=== PATIENT | female | born 1980 | race Caucasian/White ===

== ENCOUNTER 2016-12-19 23:29 | Observation (INO) | payer OTHER ==
--- NOTE | 2016-12-20 00:03 | PDOC ---
History of Present Illness - General Chief Complaint: Headache Stated Complaint: HEADACHE Time Seen by Provider: 12/19/16 23:42 History Source: Patient Exam Limitations: No Limitations - History of Present Illness Timing/Duration: reports: 4-6 hours Associated Symptoms: denies: fever/chills, nausea/vomiting, ringing in ears, slurred speech, tingling in legs/feet Past History - Past Medical History Allergies/Adverse Reactions: Allergies Allergy/AdvReac Type Severity Reaction Status Date / Time No Known Allergies Allergy Verified 12/20/16 00:01 Home Medications: Ambulatory Orders Enoxaparin [Lovenox -] 60 mg SQ DAILY 12/20/16 NK [No Known Home Medication] 12/20/16 CVA: Yes (2010) - Immunization History Immunization Up to Date: Yes - Psycho/Social/Smoking Cessation Hx Anxiety: No Suicidal Ideation: No Smoking Status: No Smoking History: Never smoked Years of Tobacco Use: 0 Number of Cigarettes Smoked Daily: 0 Cigars Per Day: 0 Hx Alcohol Use: No Drug/Substance Use Hx: No Review of Systems - Review of Systems Able to Perform ROS?: Yes Comments:: 12/20/16 00:02 CONSTITUTIONAL: Absent: fever, chills, diaphoresis, generalized weakness, malaise, loss of appetite HEENT: Absent: rhinorrhea, nasal congestion, throat pain, throat swelling, difficulty swallowing, mouth swelling, ear pain, eye pain, visual Changes CARDIOVASCULAR: Absent: chest pain, loss of consciousness, palpitations, irregular heart rate, peripheral edema RESPIRATORY: Absent: cough, shortness of breath, dyspnea with exertion, orthopnea, wheezing, stridor, hemoptysis GASTROINTESTINAL: Absent: abdominal pain, abdominal distension, nausea, vomiting, diarrhea, constipation, melena, hematochezia GENITOURINARY: Absent: dysuria, frequency, urgency, hesitancy, hematuria, flank pain, genital pain MUSCULOSKELETAL: Absent: myalgia, arthralgia, joint swelling SKIN: Absent: rash, itching, pallor HEMATOLOGIC/IMMUNOLOGIC: Absent: easy bleeding, easy bruising, lymphadenopathy, frequent infections ENDOCRINE: Absent: unexplained weight gain, unexplained weight loss, heat intolerance, cold intolerance NEUROLOGIC: +generalized serrano Absent: focal weakness or paresthesias, dizziness, unsteady gait, seizure, mental status changes, bladder or bowel incontinence PSYCHIATRIC: Absent: anxiety, depression, suicidal or homicidal ideation, hallucinations. Is the patient limited Korean proficient: No *Physical Exam - Physical Exam Comments: 12/20/16 00:02 GENERAL: Well developed, well nourished. Awake and alert. No acute distress. HEENT: Normocephalic, atraumatic. PERRLA, EOMI. No conjunctival pallor. Sclera are non- icteric. Moist mucous membranes. Oropharynx is clear. NECK: Supple. Full ROM. No JVD. Carotid pulses 2+ and symmetric, without bruits. No thyromegaly. No lymphadenopathy. CARDIOVASCULAR: Regular rate and rhythm. No murmurs, rubs, or gallops. Distal pulses are 2+ and symmetric. PULMONARY: No evidence of respiratory distress. Lungs clear to auscultation bilaterally. No wheezing, rales or rhonchi. ABDOMINAL: Soft. Non-tender. Non-distended. No rebound or guarding. No organomegaly. Normoactive bowel sounds. MUSCULOSKELETAL Normal range of motion at all joints. No bony deformities or tenderness. No CVA tenderness. EXTREMITIES: No cyanosis. No clubbing. No edema. No calf tenderness. SKIN: Warm and dry. Normal capillary refill. No rashes. No jaundice. NEUROLOGICAL: Alert, awake, appropriate. Cranial nerves 2-12 intact. No deficits to light touch and temperature in face, upper extremities and lower extremities. No motor deficits in the in face, upper extremities and lower extremities. Normoreflexic in the upper and lower extremities. Normal speech. Toes are down- going bilaterally. Gait is normal without ataxia. PSYCHIATRIC: Cooperative. Good eye contact. Appropriate mood and affect. ED Treatment Course - LABORATORY CBC & Chemistry Diagram: 12/20/16 00:21 12/20/16 00:21 Progress Note - Progress Note Progress Note: 36-year-old female presents to the emergency department complaining of diffuse headache since this morning. Patient states the pain is described as gradual onset from last evening 8/10 dull constant nonradiating discomfort. Patient says her symptoms are similar to 2010 when she had the cerebral hemorrhage after preeclampsia. Patient had no neurological deficits from that incident. She denies fever, chills, nausea/vomiting, neck pains, back pains, chest pain, shortness of breath, abdominal pains, Edwin numbness or tingling sensation. Patient was just discharged from [facility] yesterday. She had on 12/12/2016/eclampsia. Patient was treated at [facility] Past medical history: -2010: preeclampsia. day #2, patient developed a unrelenting headache which affected her gait and coordination. She states 1 day , she developed a worse headache of her life. She had a CAT scan of her head which showed cerebral hemorrhage. -NSVC on 12/12/2016: today is day 9. Elevated blood pressures and slowly progressive headache Pt received Mag sulfate 4gm initiate dose then 2 gm /hr x24 hour PT was d/c yesterday without HTN MEDS [id number]: Spoke to Dr. Apple [phone]/OB at [facility]. Suggest to admit for HTN Pt offered to be transferred back to [facility] to continue care with her OB/med team. Pt refuses, wishes to be admitted here 0315hrs: Spoke to Dr. Rosado/hospitalist who says to d/c pt. He was informed to consult with pt in the ER and he may discharge if that is his plan. 0425hrs: Case discussed with Dr. Reyna/OB salvationist here at [facility]. Dr. Reyna suggests to have pt admitted to medical team for HTN control. She says pt will not come to L&D because pt delivered on 12/12/2015. 0428hrs: LIZA Yan spoke to Dr. Rosado/hospitalist who ordered Clonidine 0.1mg. *DC/Admit/Observation/Transfer Diagnosis at time of Disposition: Pre-eclampsia, , Hypertension, condition or complication - Discharge Dispostion Condition at time of disposition: Guarded Admit: Yes - Referrals Referrals: Alexander Stone MD [Primary Care Provider] -
[2016-12-20] MEDS ORDERED: METOCLOPRAMIDE HCL INJECTION 10 MG/2 ML VIAL IVPUSH ONE (00:27)
[2016-12-20] MEDS ORDERED: HYDROmorphone HCL CARPU-JECT 1 MG/1 ML DISP.SYRIN IVPUSH ONE (00:27)
[2016-12-20] MEDS ORDERED: SODIUM CHLORIDE 1,000 ML IV STA (00:27)
[2016-12-20] MEDS ORDERED: LABETALOL HCL 5 MG/1 ML (100MG/20 ML VIAL) IVPUSH ONE (00:32)
[2016-12-20 00:36] LABS: BASOPHIL 1.4 % (0-2.0); MCH 21.4 pg (25.7-33.7); MCHC 30.5 g/dl (32.0-36.0); MEAN CELL VOLUME 70.1 fl (80-96); MEAN PLT VOLUME 8.3 fl (7.5-11.1); NEUTROPHILS 69.8 % (42.8-82.8); PLATELET COUNT 409 K/MM3 (134-434); RDW 23.8 % (11.6-15.6); WHITE BLOOD COUNT 10.6 K/mm3 (4.0-10.0)
[2016-12-20] MEDS ORDERED: METOCLOPRAMIDE HCL INJECTION 10 MG/2 ML VIAL ONE ×2 (00:55→10:31)
[2016-12-20] MEDS ORDERED: LABETALOL HCL 5 MG/1 ML (100MG/20 ML VIAL) ONE (00:55)
[2016-12-20 01:03] LABS: ALBUMIN 2.7 g/dl (3.4-5.0); ANION GAP 12 (8-16); BILIRUBIN,TOTAL 0.3 mg/dL (0.2-1.0); CALCIUM 8.8 mg/dL (8.5-10.1); CO2 27 mmol/L (21-32); GLUCOSE,RANDOM 94 mg/dL (74-106); SGOT/AST 73 U/L (15-37); SGPT/ALT 78 U/L (12-78)
[2016-12-20 01:04] LABS: ALK PHOS 101 U/L (45-117); TOT PROT 6.5 g/dl (6.4-8.2)
[2016-12-20] MEDS ORDERED: HYDROmorphone HCL CARPU-JECT 1 MG/1 ML DISP.SYRIN ONE ×2 (01:16→04:25)
--- NOTE | 2016-12-20 01:21 | PDOC ---
*Physical Exam - Vital Signs Last Vital Signs Temp Pulse Resp BP Pulse Ox 97.8 F 75 18 182/99 94 L 12/20/16 00:01 12/20/16 00:01 12/20/16 00:01 12/20/16 00:01 12/20/16 00:01 ED Treatment Course - LABORATORY CBC & Chemistry Diagram: 12/20/16 00:21 12/20/16 00:21 - ADDITIONAL ORDERS Additional order review: Laboratory Results 12/20/16 00:21 Sodium 142 Potassium 4.5 D Chloride 103 Carbon Dioxide 27 Anion Gap 12 BUN 13 D Creatinine 1.0 D Creat Clearance w eGFR > 60 Random Glucose 94 Calcium 8.8 Total Bilirubin 0.3 AST 73 H D ALT 78 D Alkaline Phosphatase 101 D Total Protein 6.5 Albumin 2.7 L D 12/20/16 00:21 RBC 4.46 MCV 70.1 L MCHC 30.5 L RDW 23.8 H D MPV 8.3 D Neutrophils % 69.8 D Lymphocytes % 20.3 Monocytes % 5.5 Eosinophils % 3.0 Basophils % 1.4 Medical Decision Making - Critical Care Time Total Critical Care Time (minutes): 65 Critical Care Statement: The care of this patient involved high complexity decision making to prevent further life threatening deterioration of the patient 's condition and/or to evalute & treat vital organ system(s) failure or risk of failure. - Medical Decision Making 12/20/16 01:19 Patient seen and evaluated with the nurse practitioner. I agree with the overall evaluation, assessment, and management with the following summary of visit: 36-year-old female with history of preeclampsia complicated by subarachnoid hemorrhage now presents about 5 weeks with elevated blood pressures and gradual onset of slowly progressive headache, but potentially similar in nature to her past subarachnoid. No neurological deficits. Vitals as noted. Exam as noted. 36-year-old female presents with preeclampsia, rule out complication of intracranial hemorrhage. Lower suspicion given onset pattern. Neurologically intact. Stat CT head IV access obtained, blood pressure control with labetalol Labs sent, EKG, chest x-ray Pain control for headache OB/L+D consult Admission 12/20/16 02:07 Labs wnl, feels well with improved BP 140-[address] without acute pathology, remains neuro intact. Will discuss plan with her private doc from [facility], from which she was discharged last night. Determine transfer v. d/c (start meds or routine f/u?). Plan to contact OB/L+D and dispo accordingly. *DC/Admit/Observation/Transfer Diagnosis at time of Disposition: Pre-eclampsia, - Referrals Referrals: Alexander Stone MD [Primary Care Provider] -
[2016-12-20] MEDS ORDERED: hydrALAZINE HCL 20 MG/ML VIAL IVPUSH ONE (01:44)
[2016-12-20] MEDS ORDERED: hydrALAZINE HCL 20 MG/ML VIAL ONE (01:49)
[2016-12-20 03:58] LABS: URINE APPEARANCE SLCLOUDY; URINE BILIRUBIN NEGATIVE (NEGATIVE); URINE COLOR STRAW; URINE GLUCOSE (UA) NEGATIVE (NEGATIVE); URINE KETONE NEGATIVE (NEGATIVE); URINE NITRITE NEGATIVE (NEGATIVE); URINE PROTEIN NEGATIVE (NEGATIVE); URINE UROBILINOGEN NEGATIVE E.U./dl (0.2-1.0)
[2016-12-20 04:10] LABS: URINE BLOOD 3+ (NEGATIVE); URINE LEUK ESTERASE 2+ (NEGATIVE)
[2016-12-20] MEDS ORDERED: HYDROmorphone HCL CARPU-JECT 1 MG/1 ML DISP.SYRIN IVPB ONE ×2 (04:22→15:02)
[2016-12-20 04:25] LABS: URINE RBC 270 /hpf (0-3); URINE WBC 64 /hpf (3-5)
[2016-12-20] MEDS ORDERED: cloNIDine HCL 0.1 MG TABLET ONE (04:40)
[2016-12-20] MEDS ORDERED: cloNIDine HCL 0.1 MG TABLET PO ONE (04:47)
[2016-12-20 06:59] LABS: PLATELET ESTIMATE ADEQUATE (NORMAL)
[2016-12-20 07:00] LABS: ANISOCYTOSIS 3+; HYPOCHROMIA 1+; POLYCHROMASIA 2+
[2016-12-20] MEDS ORDERED: MAGNESIUM SULF 50% (8.12 MEQ/2 ML-1 GM VIAL) ONE (07:27)
[2016-12-20 07:48] LABS: MAGNESIUM 1.9 mg/dL (1.8-2.4)
[2016-12-20 08:59] LABS: URINE APPEARANCE CLEAR; URINE BILIRUBIN NEGATIVE (NEGATIVE); URINE COLOR STRAW; URINE GLUCOSE (UA) NEGATIVE (NEGATIVE); URINE KETONE NEGATIVE (NEGATIVE); URINE NITRITE NEGATIVE (NEGATIVE); URINE PROTEIN NEGATIVE (NEGATIVE); URINE UROBILINOGEN NEGATIVE E.U./dl (0.2-1.0)
[2016-12-20] MEDS ORDERED: LABETALOL HCL 200 MG TABLET (FP) PO SCH ×2 (09:00→10:00)
[2016-12-20 09:01] LABS: URINE BLOOD 3+ (NEGATIVE); URINE LEUK ESTERASE 1+ (NEGATIVE)
[2016-12-20 09:04] LABS: URINE MUCUS RARE; URINE RBC 420 /hpf (0-3); URINE WBC 12 /hpf (3-5)
--- NOTE | 2016-12-20 09:24 | HP ---
CHIEF COMPLAINT: PCP: Dr. Stone OB: Dr. 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 The patient delivered at full term on 12/12 and remained in [facility] on MgSO4 for treatment of pre-eclampsia; she was discharged yesterday on no HTN meds. She reports that last night just before midnight, she developed generalized headache. She states that it is "not as bad" as when she had her SAH. She took some Tylenol with partial relief. She denies nausea/vomiting, neck pain, and visual changes, but does report that she felt "uncoordinated" when she tried to stand up from her bed. ER course was notable for: (1) Head CT: No acute intracranial process (2) HTN, max BP 175/94 (3) Given hydralazine 10mg IVP and Labetolol 10mg IVP [facility] records reviewed and notable for: (1) Severe range BPs with dyspnea requiring 24 hrs pf magnesium sulfate (2) CXR showing mild pulmonary vascular congestion (3) Echocardiogram showing mildly dilated LA with EF 65%; seen by cardiology and cleared for discharge with outpatient followup (4) Complaint of lower extremity numbness: T-spine and L-spine MRI spine performed with no significant disc herniation spinal stenosis, or cord compression. Diffuse T1 hypodensity of the marrow was noted which in a patient can be seen with anemia. Recent Travel: None Social History: Lives with fiance and four children Smoking: None Alcohol: None Drugs:None Allergies No Known Allergies Allergy (Verified 12/20/16 00:01) HOME MEDICATIONS: Home Medications Medication Instructions Recorded Enoxaparin [Lovenox -] 60 mg SQ DAILY 12/20/16 NK [No Known Home Medication] 12/20/16 REVIEW OF SYSTEMS CONSTITUTIONAL: Absent: fever, chills, diaphoresis, generalized weakness, malaise, loss of appetite, weight change HEENT: Absent: rhinorrhea, nasal congestion, throat pain, throat swelling, difficulty swallowing, mouth swelling, ear pain, eye pain, visual changes CARDIOVASCULAR: Absent: chest pain, syncope, palpitations, irregular heart rate, lightheadedness , peripheral edema RESPIRATORY: Absent: cough, shortness of breath, dyspnea with exertion, orthopnea, wheezing, stridor, hemoptysis GASTROINTESTINAL: Absent: abdominal pain, abdominal distension, nausea, vomiting, diarrhea, constipation, melena, hematochezia GENITOURINARY: Absent: dysuria, frequency, urgency, hesitancy, hematuria, flank pain, genital pain MUSCULOSKELETAL: Absent: myalgia, arthralgia, joint swelling, back pain, neck pain SKIN: Absent: rash, itching, pallor HEMATOLOGIC/IMMUNOLOGIC: Absent: easy bleeding, easy bruising, lymphadenopathy, frequent infections ENDOCRINE: Absent: unexplained weight gain, unexplained weight loss, heat intolerance, cold intolerance NEUROLOGIC: See HPI PSYCHIATRIC: Absent: anxiety, depression, suicidal or homicidal ideation, hallucinations. PHYSICAL EXAMINATION Vital Signs - 24 hr 12/20/16 12/20/16 06:38 06:56 Blood Pressure 175/94 175/94 [Left Arm] GENERAL: Awake, alert, and fully oriented, in no acute distress. HEAD: Normal with no signs of trauma. EYES: Pupils equal, round and reactive to light, extraocular movements intact, sclera anicteric, conjunctiva clear. No lid lag. EARS, NOSE, THROAT: Ears normal, nares patent, oropharynx clear without exudates. Moist mucous membranes. NECK: Normal range of motion, supple without lymphadenopathy, JVD, or masses. LUNGS: Breath sounds equal, clear to auscultation bilaterally. No wheezes, and no crackles. No accessory muscle use. HEART: Regular rate and rhythm, normal S1 and S2 without murmur, rub or gallop. ABDOMEN: Soft, nontender, not distended, normoactive bowel sounds, no guarding, no rebound, no masses. No hepatomegaly or splenomegaly. MUSCULOSKELETAL: Normal range of motion at all joints. No bony deformities or tenderness. No CVA tenderness. UPPER EXTREMITIES: 2+ pulses, warm, well-perfused. No cyanosis. No clubbing. Cap refill <2 seconds. No peripheral edema. LOWER EXTREMITIES: 2+ pulses, warm, well-perfused. No calf tenderness. No peripheral edema. NEUROLOGICAL: Cranial nerves II-XII intact. Normal speech. PSYCHIATRIC: Cooperative. Good eye contact. Appropriate mood and affect. SKIN: Warm, dry, normal turgor, no rashes or lesions noted. Laboratory Results - last 24 hr 12/20/16 12/20/16 08:08 08:41 Urine Color Straw Urine Appearance Clear Urine pH 6.0 Ur Specific [place] 1.008 Urine Protein Negative Urine Glucose (UA) Negative Urine Ketones Negative Urine Blood 3+ H Urine Nitrite Negative Urine Bilirubin Negative Urine Urobilinogen Negative Ur Leukocyte Esterase 1+ H Urine RBC 420 Urine WBC 12 Ur Epithelial Cells Rare Urine Mucus Rare Urine HCG, Qual Negative ASSESSMENT/PLAN: 36 year old female with post- HTN and headache. Problem List - Problem (1) Hypertension, condition or complication Assessment/Plan: -Patient became bradycardic to 40s after one dose Labetolol; will discontinue this -Patient is not -Start Lisinopril 5mg bid -Sodium restriction -Monitor Code(s): O16.9 - UNSPECIFIED MATERNAL HYPERTENSION, UNSPECIFIED TRIMESTER (2) Headache Assessment/Plan: -HCT obtained within 6 hrs of symptom onset; very high sensitivity for ruling out SAH -In addition, patient states character and severity of headache is different from/less than prior SAH -Will treat headache with Reglan/Benadryl -Expect improvement with BP control -Neuro checks q4h Code(s): R51 - HEADACHE (3) Protein S deficiency Assessment/Plan: -Continue Lovenox 60mg daily for 6 weeks per [facility] OB recommendations Code(s): D68.59 - OTHER PRIMARY THROMBOPHILIA (4) DVT prophylaxis Assessment/Plan: -Lovenox -Ambulation Code(s): HGO6601 - Visit type - Emergency Visit Emergency Visit: Yes ED Registration Date: 12/20/16 Care time: The patient presented to the Emergency Department on the above date and was hospitalized for further evaluation of their emergent condition. - New Patient This patient is new to me today: Yes Date on this admission: 12/20/16 - Critical Care Critical Care patient: No
[2016-12-20] MEDS ORDERED: METOCLOPRAMIDE HCL INJECTION 10 MG/2 ML VIAL IVPB ONE (09:56)
[2016-12-20] MEDS ORDERED: LISINOPRIL 5 MG TABLET (FP) PO SCH (10:00)
[2016-12-20] MEDS ORDERED: LISINOPRIL 5 MG TABLET (FP) ONE (10:32)
[2016-12-20] MEDS: LISINOPRIL 5 MG TABLET (FP) PO SCH ×3 (10:41→22:43)
[2016-12-20 11:36] VITALS: BMI 39.1
[2016-12-20] MEDS ORDERED: METOCLOPRAMIDE HCL INJECTION 10 MG/2 ML VIAL IVPB PRN (18:00)
[2016-12-20] MEDS ORDERED: IBUPROFEN 600 MG TABLET (FP) PO PRN (23:53)
--- NOTE | 2016-12-21 06:04 | EKG ---
Test Reason : Blood Pressure : / mmHG Vent. Rate : 045 BPM Atrial Rate : 045 BPM P-R Int : 150 ms QRS Dur : 104 ms QT Int : 496 ms P-R-T Axes : 046 043 032 degrees QTc Int : 429 ms SINUS BRADYCARDIA WITH SINUS ARRHYTHMIA OTHERWISE NORMAL ECG WHEN COMPARED WITH ECG OF 15-NOV-2012 05:52, VENT. RATE HAS DECREASED BY 35 BPM BORDERLINE CRITERIA FOR INFERIOR INFARCT ARE NO LONGER PRESENT T WAVE AMPLITUDE HAS INCREASED IN LATERAL LEADS Confirmed by JEREMY BAEZ MD ([id number]) on 12/20/2016 9:46:55 PM Referred By: Confirmed By:JEREMY BAEZ MD
[2016-12-21 06:35] VITALS: BP 142/90
[2016-12-21 07:21] LABS: BASOPHIL 0.9 % (0-2.0); EOSINOPHIL 3.9 % (0-4.5); INR 1.17 (0.82-1.09); MCHC 31.2 g/dl (32.0-36.0); MEAN CELL VOLUME 70.6 fl (80-96); MEAN PLT VOLUME 8.1 fl (7.5-11.1); NEUTROPHILS 67.1 % (42.8-82.8); PLATELET COUNT 463 K/MM3 (134-434); PROTHROMBIN TIME (PATIENT) 12.9 SEC (9.98-11.88); RDW 23.1 % (11.6-15.6); WHITE BLOOD COUNT 7.8 K/mm3 (4.0-10.0)
[2016-12-21 07:31] LABS: ALBUMIN 2.8 g/dl (3.4-5.0); ANION GAP 9 (8-16); BILIRUBIN,TOTAL 0.4 mg/dL (0.2-1.0); CALCIUM 8.9 mg/dL (8.5-10.1); CO2 29 mmol/L (21-32); CREATININE 0.8 mg/dL (0.55-1.02); GLUCOSE,RANDOM 80 mg/dL (74-106); MAGNESIUM 2.2 mg/dL (1.8-2.4); SGOT/AST 75 U/L (15-37); SGPT/ALT 115 U/L (12-78); TOT PROT 6.7 g/dl (6.4-8.2)
[2016-12-21 07:32] LABS: ALK PHOS 100 U/L (45-117)
[2016-12-21] MEDS: LISINOPRIL 5 MG TABLET (FP) PO SCH (09:02)
[2016-12-21] MEDS ORDERED: ENOXAPARIN NA (PORCINE) 60 MG/0.6 ML DISP.SYRIN SQ SCH (10:00)
[2016-12-21 14:11] VITALS: PULSE 68; TEMP 98.4
--- NOTE | 2016-12-21 14:23 | PN ---
Teaching Attending Note Name of Resident: Whitley Morris ATTENDING PHYSICIAN STATEMENT I saw and evaluated the patient. I reviewed the resident's note and discussed the case with the resident. I agree with the resident's findings and plan as documented. SUBJECTIVE: Patient is comfortable with no acute distress, no headache, no shortness of breath, no nausea or vomiting. OBJECTIVE: Vital Signs Temperature 98.4 F 12/21/16 14:00 Pulse Rate 68 12/21/16 14:00 Respiratory Rate 17 12/21/16 14:00 Blood Pressure 142/90 12/21/16 06:00 O2 Sat by Pulse Oximetry (%) 96 12/21/16 00:00 GENERAL: Awake, alert, and fully oriented, in no acute distress. HEAD: Normal with no signs of trauma. EYES: Pupils equal, round and reactive to light, extraocular movements intact, sclera anicteric, conjunctiva clear. EARS, NOSE, THROAT: Ears normal, oropharynx clear without exudates. Moist mucous membranes. NECK: Normal range of motion, supple without lymphadenopathy, JVD, or masses. LUNGS: Breath sounds equal, clear to auscultation bilaterally. No wheezes, and no crackles. No accessory muscle use. HEART: Regular rate and rhythm, normal S1 and S2 without murmur, rub or gallop. ABDOMEN: Soft, nontender, not distended, normoactive bowel sounds, no guarding, no rebound, no masses. MUSCULOSKELETAL: Normal range of motion at all joints. No bony deformities or tenderness. No CVA tenderness. EXTREMITIES: 2+ pulses, warm, well-perfused. No calf tenderness. No peripheral edema. NEUROLOGICAL: Cranial nerves II-XII intact. Normal speech. PSYCHIATRIC: Cooperative. Good eye contact. Appropriate mood and affect. SKIN: Warm, dry, normal turgor, no rashes or lesions noted. CBCD WBC 7.8 K/mm3 (4.0-10.0) 12/21/16 06:30 RBC 4.91 M/mm3 (3.60-5.2) 12/21/16 06:30 Hgb 10.8 GM/dL (10.7-15.3) D 12/21/16 06:30 Hct 34.6 % (32.4-45.2) 12/21/16 06:30 MCV 70.6 fl (80-96) L 12/21/16 06:30 MCHC 31.2 g/dl (32.0-36.0) L 12/21/16 06:30 RDW 23.1 % (11.6-15.6) H 12/21/16 06:30 Plt Count 463 K/MM3 (134-434) H 12/21/16 06:30 MPV 8.1 fl (7.5-11.1) 12/21/16 06:30 CMP Sodium 140 mmol/L (136-145) 12/21/16 06:30 Potassium 4.4 mmol/L (3.5-5.1) 12/21/16 06:30 Chloride 102 mmol/L (98-107) 12/21/16 06:30 Carbon Dioxide 29 mmol/L (21-32) 12/21/16 06:30 Anion Gap 9 (8-16) 12/21/16 06:30 BUN 10 mg/dL (7-18) D 12/21/16 06:30 Creatinine 0.8 mg/dL (0.55-1.02) 12/21/16 06:30 Creat Clearance w eGFR > 60 (>60) 12/21/16 06:30 Random Glucose 80 mg/dL (74-106) 12/21/16 06:30 Calcium 8.9 mg/dL (8.5-10.1) 12/21/16 06:30 Total Bilirubin 0.4 mg/dL (0.2-1.0) D 12/21/16 06:30 AST 75 U/L (15-37) H 12/21/16 06:30 ALT 115 U/L (12-78) H D 12/21/16 06:30 Alkaline Phosphatase 100 U/L (45-117) 12/21/16 06:30 Total Protein 6.7 g/dl (6.4-8.2) 12/21/16 06:30 Albumin 2.8 g/dl (3.4-5.0) L 12/21/16 06:30 Current Medications Generic Name Dose Route Start Last Admin Trade Name Freq PRN Reason Stop Dose Admin Diphenhydramine HCl 12.5 mg 12/20/16 18:00 Benadryl Injection - IVPUSH Q8H PRN FOR ITCHING Enoxaparin Sodium 60 mg 12/21/16 10:00 12/21/16 09:02 Lovenox - SQ 60 mg DAILY CHILANGO Administration Ibuprofen 600 mg 12/20/16 23:53 Motrin - PO Q6H PRN FEVER OR PAIN Lisinopril 5 mg 12/20/16 10:30 12/21/16 09:02 Prinivil PO 5 mg BID CHILANGO Administration Metoclopramide HCl 10 mg 12/20/16 18:00 Reglan Injection - IVPB Q8H PRN HEADACHE Home Medications Medication Instructions Recorded Albuterol Sulfate Inhaler - 2 inh PO Q6H PRN 12/20/16 [Ventolin HFA Inhaler -] Docusate Sodium [Dok] 100 mg PO DAILY 12/20/16 Vit/Iron Fumarate/FA 1 each PO DAILY 12/20/16 [ Tablet] Enoxaparin [Lovenox -] 60 mg SQ DAILY disp.syrin 12/21/16 Lisinopril [Prinivil] 5 mg PO BID #60 tablet 12/21/16 ASSESSMENT AND PLAN: This is a 36 year old female a1 with a history of iron-deficiency anemia ( receives iron infusions q 6 months, no history of blood transfusions), post- 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 As per patient will not breastfeed the baby and the risk explained to the patient not to breastfeed while on ACI-I # Headache ; No further headache. # Protein S deficiency Continue Lovenox 60mg daily for 6 weeks per [facility] OB recommendations follow with OBYGYN on
--- NOTE | 2016-12-21 15:12 | DS ---
Physical Exam: SUBJECTIVE: Patient seen and examined. She is feeling good. Denies chest pain, palpitations, headache, dizziness, LOC. OBJECTIVE: Vital Signs Period Temp Pulse Resp BP Sys/Darling Pulse Ox Last 24 Hr 98.2 F-98.9 F 56-68 17-20 142-159/81-90 96 PHYSICAL EXAM GENERAL: The patient is awake, alert, and fully oriented, in no acute distress. HEAD: Normal with no signs of trauma. EYES: sclera anicteric, conjunctiva clear. ENT: moist mucous membranes. NECK: Trachea midline, supple. LUNGS: Breath sounds equal, clear to auscultation bilaterally, no wheezes, no crackles, no accessory muscle use. HEART: Regular rate and rhythm, S1, S2 without murmur, rub or gallop. ABDOMEN: Soft, tender in all 4 Q, nondistended, normoactive bowel sounds, no guarding, no rebound. EXTREMITIES: trace edema. NEUROLOGICAL: Normal speech, gait not observed. PSYCH: Normal mood, normal affect. SKIN: Warm, dry, normal turgor, no rashes. LABS Laboratory Results - last 24 hr 12/21/16 12/21/16 12/21/16 06:30 06:30 06:30 WBC 7.8 RBC 4.91 Hgb 10.8 D Hct 34.6 MCV 70.6 L MCHC 31.2 L RDW 23.1 H Plt Count 463 H MPV 8.1 Neutrophils % 67.1 Lymphocytes % 22.1 Monocytes % 6.0 Eosinophils % 3.9 Basophils % 0.9 INR 1.17 H Sodium 140 Potassium 4.4 Chloride 102 Carbon Dioxide 29 Anion Gap 9 BUN 10 D Creatinine 0.8 Creat Clearance w eGFR > 60 Random Glucose 80 Calcium 8.9 Phosphorus 5.0 H Magnesium 2.2 Total Bilirubin 0.4 D AST 75 H ALT 115 H D Alkaline Phosphatase 100 Total Protein 6.7 Albumin 2.8 L HOSPITAL COURSE: Date of Admission:12/20/16 Date of Discharge: 12/21/16 Minutes to complete discharge: 50 Discharge Summary Reason For Visit: HYPERTENSION, CONDITION OR COMPLICATION Current Active Problems DVT prophylaxis (Acute) Headache (Acute) Hypertension, condition or complication (Acute) Pre-eclampsia, (Acute) Protein S deficiency (Acute) Hospital Course: This is a 36 year old female a1 with a history of iron-deficiency anemia ( receives iron infusions q 6 months, no history of blood transfusions), post- 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 in 2010, and protein S deficiency on Lovenox who presented to the ED today complaining of headache. The patient delivered at full term on 12/12 and remained in [facility] on MgSO4 for treatment of pre-eclampsia; she was discharged on no HTN meds. She reports that she developed generalized headache. She states that it is "not as bad" as when she had her SAH. She took some Tylenol with partial relief. She denies nausea/vomiting, neck pain, and visual changes, but does report that she felt "uncoordinated" when she tried to stand up from her bed. Hospital course; Hypertension; max 175/94, we ordered CT head; no acute [id number], given labetalol, hydralazine, she became bradycardic. We dc that. She was stasrted on Lisinopril 5 mg BID, sodium restriction diet, monitoring. Headache: the patient states character and severity of headache is different from/less than prior SAH, Reglan/Benadryl. She was discharged on lisinopril and we recommended that she will f/u with her PCP in 3 days and avoid . She was discharged on Lovenox that was prescribed by OBGYN to continue for 6 weeks . ( Condition: Good - Instructions Diet, Activity, Other Instructions: Please take your medications everyday. Take Lisinopril 5 mg twice a day. Please check your blood pressure at home. If you have severe headache, vision problems, loss of consciousness, bleeding, dizziness, palpitations, chest pain, shortness of breath come to Emergency Room as soon as possible. Please don't breastfeed your baby while taking Lisinopril. Referrals: Alexander Stone MD [Primary Care Provider] - Disposition: HOME - Home Medications Comprehensive Discharge Medication List: Ambulatory Orders Albuterol Sulfate Inhaler - [Ventolin HFA Inhaler -] 2 inh PO Q6H PRN 12/20/16 Docusate Sodium [Dok] 100 mg PO DAILY 12/20/16 Vit/Iron Fumarate/FA [ Tablet] 1 each PO DAILY 12/20/16 Enoxaparin [Lovenox -] 60 mg SQ DAILY disp.syrin 12/21/16 Lisinopril [Prinivil] 5 mg PO BID #60 tablet 12/21/16 Problem List - Problems (1) Headache Code(s): R51 - HEADACHE (2) Hypertension, condition or complication Code(s): O16.9 - UNSPECIFIED MATERNAL HYPERTENSION, UNSPECIFIED TRIMESTER (3) Pre-eclampsia, Code(s): O14.90 - UNSPECIFIED PRE-ECLAMPSIA, UNSPECIFIED TRIMESTER This patient is new to me today: Yes Date on this admission: 12/21/16 Emergency Visit: Yes ED Registration Date: 12/20/16 Care time: The patient presented to the Emergency Department on the above date and was hospitalized for further evaluation of their emergent condition. Critical Care patient: No - Discharge Referral Referred to [facility] Med P.C.: No
--- NOTE | 2016-12-22 00:24 | EKG ---
Test Reason : Blood Pressure : / mmHG Vent. Rate : 076 BPM Atrial Rate : 076 BPM P-R Int : 150 ms QRS Dur : 086 ms QT Int : 446 ms P-R-T Axes : 042 058 038 degrees QTc Int : 501 ms NORMAL SINUS RHYTHM PROLONGED QT ABNORMAL ECG WHEN COMPARED WITH ECG OF 20-DEC-2016 08:33, VENT. RATE HAS INCREASED BY 31 BPM Confirmed by RACHEL CHANEY MD ([id number]) on 12/22/2016 12:24:39 AM Referred By: AARTI MARTINEZ Confirmed By:RACHEL CHANEY MD
== END 2016-12-21 17:21 | disposition home or self-care (01) ==
LOC: JER 23:29 → JERBED 12-20 05:01 → J6S 12-20 14:22
PROVIDERS: ADMIT Internal Medicine; ATTEND Internal Medicine
DX: O90.89 Other complications of the puerperium, not elsewhere classified (principal); O16.5 Unspecified maternal hypertension, complicating the puerperium; R51 Headache; D68.59 Other primary thrombophilia
CPT/HCPCS: 36415; 70450-TC; 71010-TC; 80053; 81003; 81015; 83735; 84100; 84703; 85025; 85610; 93005; 93010; 99284-25; G0378

== ENCOUNTER 2017-08-24 18:29 | Emergency (ER) | payer OTHER ==
--- NOTE | 2017-08-24 18:41 | PDOC ---
History of Present Illness - History of Present Illness Initial Comments: 08/24/17 19:16 The patient is a 37 year old female, A1, with a significant past medical history of iron deficiency anemia (transfusions every 3 months), protein S deficiency (Lovenox discontinued), asthma, CVA and brain bleed (s/p craniotomy 2010), who presents to the emergency department from Dr. Martínez office, with progressively increasing headache for 10 days, dyspnea for 6 days, and subjective fever and chills with one episode of emesis while at work earlier today. The patient states her headache started as intermittent, however, has been constant for about a day. The patient reports her headache is posterior with radiation to her right temporal region. She reports feeling short of breath , but denies wheezing. The patient reports feeling chills and feverish at work today and reportedly took Dayquil at 1PM. The patient denies nausea, but reports one episode of nonbloody emesis today. She denies chest pain and dizziness. She denies nausea, diarrhea and constipation. She denies dysuria, frequency, urgency and hematuria. Allergies: NKDA Past surgical history: craniotomy Social history: Pt denies toxic habits PCP - Dr. Alexander Stone <Halima Huddleston - Last Filed: 08/25/17 00:18> <Alondra Kirkpatrick - Last Filed: 08/25/17 03:29> - General Stated Complaint: SOB/HEADACHES Time Seen by Provider: 08/24/17 18:40 Past History <Halima Huddleston - Last Filed: 08/25/17 00:18> - Past Medical History Anemia: Yes CVA: Yes (2010) - Immunization History Immunization Up to Date: Yes - Suicide/Smoking/Psychosocial Hx Smoking Status: No Smoking History: Never smoked Years of Tobacco Use: 0 Number of Cigarettes Smoked Daily: 0 Cigars Per Day: 0 Hx Alcohol Use: No Drug/Substance Use Hx: No <Alondra Kirkpatrick - Last Filed: 08/25/17 03:29> - Past Medical History Allergies/Adverse Reactions: Allergies Allergy/AdvReac Type Severity Reaction Status Date / Time No Known Allergies Allergy Verified 08/24/17 19:11 Home Medications: Ambulatory Orders Levofloxacin [Levaquin -] 500 mg PO DAILY #7 tablet 08/25/17 Review of Systems - Review of Systems Able to Perform ROS?: Yes Comments:: 08/24/17 19:16 CONSTITUTIONAL: (+) subjective fever and chills, Absent: diaphoresis, generalized weakness, malaise, loss of appetite HEENT: Absent: rhinorrhea, nasal congestion, throat pain, throat swelling, difficulty swallowing, mouth swelling, ear pain, eye pain, visual Changes CARDIOVASCULAR: Absent: chest pain, syncope, palpitations, irregular heart rate, lightheadedness , peripheral edema RESPIRATORY: (+) shortness of breath, Absent: cough, dyspnea with exertion, orthopnea, wheezing, stridor, hemoptysis GASTROINTESTINAL: (+) vomitingx1,Absent: abdominal pain, abdominal distension, nausea, diarrhea, constipation, melena, hematochezia GENITOURINARY: Absent: dysuria, frequency, urgency, hesitancy, hematuria, flank pain, genital pain MUSCULOSKELETAL: Absent: myalgia, arthralgia, joint swelling SKIN: Absent: rash, itching, pallor HEMATOLOGIC/IMMUNOLOGIC: Absent: easy bleeding, easy bruising, lymphadenopathy, frequent infections ENDOCRINE: Absent: unexplained weight gain, unexplained weight loss, heat intolerance, cold intolerance NEUROLOGIC: (+) headache, Absent: focal weakness or paresthesias, dizziness, unsteady gait , seizure, mental status changes, bladder or bowel incontinence PSYCHIATRIC: Absent: anxiety, depression, suicidal or homicidal ideation, hallucinations. <Halima Huddleston - Last Filed: 08/25/17 00:18> *Physical Exam - Vital Signs Last Vital Signs Temp Pulse Resp BP Pulse Ox 98.9 F 83 18 114/70 100 08/24/17 18:29 08/24/17 18:29 08/24/17 18:29 08/24/17 18:29 08/24/17 18:29 - Physical Exam Comments: 08/24/17 19:17 GENERAL: Well developed, well nourished. Awake and alert. No acute distress. HEENT: Normocephalic, atraumatic. PERRLA, EOMI. No conjunctival pallor. Sclera are non- icteric. Moist mucous membranes. Oropharynx is clear. NECK: Supple. Full ROM. No JVD. Carotid pulses 2+ and symmetric, without bruits. No thyromegaly. No lymphadenopathy. CARDIOVASCULAR: Regular rate and rhythm. No murmurs, rubs, or gallops. Distal pulses are 2+ and symmetric. PULMONARY: (+) scattered rhonchi. No evidence of respiratory distress. No wheezing or rales. ABDOMINAL: Soft. Non-tender. Non-distended. No rebound or guarding. No organomegaly. Normoactive bowel sounds. MUSCULOSKELETAL Normal range of motion at all joints. No bony deformities or tenderness. No CVA tenderness. EXTREMITIES: No cyanosis. No clubbing. No edema. No calf tenderness. SKIN: Warm and dry. Normal capillary refill. No rashes. No jaundice. NEUROLOGICAL: Alert, awake, appropriate. Cranial nerves 2-12 intact. Normoreflexic in the upper and lower extremities. Normal speech. Toes are down-going bilaterally. Gait is normal without ataxia. PSYCHIATRIC: Cooperative. Good eye contact. Appropriate mood and affect. <Halima Huddleston - Last Filed: 08/25/17 00:18> ED Treatment Course - LABORATORY CBC & Chemistry Diagram: 08/24/17 21:25 08/24/17 21:25 - RADIOLOGY Radiograph Interpretation: EXAM#: TYPE/EXAM: RESULT: [id number] CT/HEAD CT WITHOUT CONTRAST Status post tubal ligation. Headaches CT scan of the brain without intravenous contrast. Since 12/20/2016, the ventricles and basal cisterns appear unremarkable. No mass lesion, gross acute infarct or intracranial hemorrhage are identified. The calvarium is intact. Visualized paranasal sinuses and mastoid air cells are well aerated. Impression: No significant interval change or acute intracranial pathology is identified. Correlate clinically for further evaluation and follow-up. Reported By: Evita Garcia MD 08/24/17 2117 EXAM#: TYPE/EXAM: RESULT: [id number] RAD/CHEST PA LAT Clinical information: Fever. Chest x ray, PA and Lateral Comparison: Prior chest x-ray dated 12/20/2016 The cardiac silhouette is within normal limits in size. There is a small right pleural effusion with suggestion of atelectatic changes/infiltrates in the right lung base, laterally. The left lung is clear. Mediastinum and visualized osseous structures appear grossly intact . Impression Airspace disease/atelectatic changes/infiltrates in the right lung base, laterally with a small right pleural effusion. Reported By: Evita Garcia MD 08/25/17 0014 <Halima Huddleston - Last Filed: 08/25/17 00:18> - LABORATORY CBC & Chemistry Diagram: 08/24/17 21:25 08/24/17 21:25 <Alondra Kirkpatrick - Last Filed: 08/25/17 03:29> Medical Decision Making - Medical Decision Making 08/25/17 03:27 37-year-old female was sent from her primary care physician's office because she had a headache for 10 days. In 2010. 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 CAT scan of the head did not show any acute intracranial pathology. She did not have any focal neural deficits. Headache resolved with Reglan and Benadryl -On the emergency department. She developed a temp of 99.9, was given Tylenol. CBC was unremarkable -Influenza negative Chest x-ray was read as positive for right lower infiltrates and she was placed on antibiotics Patient was instructed to take her antibiotics follow-up with her primary care physician later this week <Alondra Kirkpatrick - Last Filed: 08/25/17 03:29> *DC/Admit/Observation/Transfer - Attestations Scribe Attestion: 08/24/17 19:18 Documentation prepared by Halima Huddleston, acting as certified medical biller for Alondra Kirkpatrick MD <Halima Huddleston - Last Filed: 08/25/17 00:18> <Alondra Kirkpatrick - Last Filed: 08/25/17 03:29> Diagnosis at time of Disposition: Pneumonia Qualifiers: Pneumonia type: due to unspecified organism Laterality: right Lung location: lower lobe of lung Qualified Code(s): J18.1 - Lobar pneumonia, unspecified organism Fever Qualifiers: Fever type: unspecified Qualified Code(s): R50.9 - Fever, unspecified - Discharge Dispostion Disposition: HOME Condition at time of disposition: Stable - Prescriptions Prescriptions: Levofloxacin [Levaquin -] 500 mg PO DAILY #7 tablet - Referrals Referrals: Alexander Stone MD [Primary Care Provider] - - Patient Instructions Printed Discharge Instructions: DI for Pneumonia -- Adult Additional Instructions: 1. Please followup with your regular physician this week 2. Please warehouse order picker your antibiotics at your pharmacy today and take them as directed 3. Take tylenol or motrin or aleve for your fever and pain 4. Drink plenty of fluid 5. Return to the emergency department for any worsening symptoms
[2017-08-24 19:11] VITALS: BMI 39.1
[2017-08-24 21:35] LABS: BASOPHIL 0.6 % (0-2.0); EOSINOPHIL 1.4 % (0-4.5); MCH 20.4 pg (25.7-33.7); MCHC 31.1 g/dl (32.0-36.0); MEAN CELL VOLUME 65.5 fl (80-96); MEAN PLT VOLUME 7.7 fl (7.5-11.1); NEUTROPHILS 68.4 % (42.8-82.8); PLATELET COUNT 340 K/MM3 (134-434); RDW 18.4 % (11.6-15.6); WHITE BLOOD COUNT 8.5 K/mm3 (4.0-10.0)
[2017-08-24 22:02] LABS: INR 1.2 (0.82-1.09); PROTHROMBIN TIME (PATIENT) 13.2 SEC (9.98-11.88)
[2017-08-24] MEDS ORDERED: METOCLOPRAMIDE HCL INJECTION 10 MG/2 ML VIAL IVPUSH ONE (22:19)
[2017-08-24] MEDS ORDERED: ACETAMINOPHEN 325 MG TABLET (FP) PO ONE (22:20)
[2017-08-24 22:23] LABS: ALBUMIN 3.4 g/dl (3.4-5.0); ANION GAP 7 (8-16); BILIRUBIN,TOTAL 0.4 mg/dL (0.2-1.0); CALCIUM 8.5 mg/dL (8.5-10.1); CO2 28 mmol/L (21-32); CREATININE 0.6 mg/dL (0.55-1.02); GLUCOSE,RANDOM 92 mg/dL (74-106); SGOT/AST 79 U/L (15-37); SGPT/ALT 106 U/L (12-78); TOT PROT 7.4 g/dl (6.4-8.2)
[2017-08-24 22:25] LABS: ALK PHOS 67 U/L (45-117); CPK 108 IU/L (26-192); TROPONIN I < 0.02 ng/ml (0.00-0.05)
[2017-08-24] MEDS ORDERED: ACETAMINOPHEN 325 MG TABLET (FP) ONE (22:31)
[2017-08-24] MEDS ORDERED: METOCLOPRAMIDE HCL INJECTION 10 MG/2 ML VIAL ONE (22:31)
[2017-08-24] MEDS ORDERED: IBUPROFEN 600 MG TABLET (FP) PO ONE (23:34)
[2017-08-25] MEDS ORDERED: IBUPROFEN 600 MG TABLET (FP) PO ONE (00:01)
[2017-08-25] MEDS ORDERED: LEVOFLOXACIN 500 MG TABLET (FP) PO ONE (00:21)
[2017-08-25] MEDS ORDERED: LEVOFLOXACIN 500 MG TABLET (FP) ONE (00:27)
[2017-08-25 02:49] VITALS: BP 113/61
[2017-08-25 03:31] VITALS: PULSE 63; TEMP 97.9
--- NOTE | 2017-08-25 12:00 | EKG ---
Test Reason : Blood Pressure : / mmHG Vent. Rate : 093 BPM Atrial Rate : 093 BPM P-R Int : 162 ms QRS Dur : 086 ms QT Int : 382 ms P-R-T Axes : 049 055 032 degrees QTc Int : 474 ms NORMAL SINUS RHYTHM NORMAL ECG WHEN COMPARED WITH ECG OF 21-DEC-2016 09:08, T WAVE AMPLITUDE HAS DECREASED IN ANTERIOR LEADS Confirmed by JANETT SILVER MD ([id number]) on 08/25/2017 12:00:09 PM Referred By: Confirmed By:JANETT SILVER MD
== END 2017-08-25 03:39 | disposition home or self-care (01) ==
LOC: JER 18:29
PROC: 3E033GC Introduction of Other Therapeutic Substance into Peripheral Vein, Percutaneous Approach (ICD-10-PCS; principal; 2017-08-24)
DX: J18.1 Lobar pneumonia, unspecified organism (principal); D50.9 Iron deficiency anemia, unspecified; D68.59 Other primary thrombophilia; J45.909 Unspecified asthma, uncomplicated; Z86.73 Personal history of transient ischemic attack (TIA), and cerebral infarction without residual deficits
CPT/HCPCS: 36415; 70450-TC; 71020-TC; 80053; 82550; 84484; 84703; 85025; 85610; 86850; 86900; 86901; 87804; 93005; 93010; 99283-25

== ENCOUNTER 2020-10-09 04:23 | Day surgery (SDC) | payer OTHER ==
[2020-10-07 13:36] VITALS: BMI 30.3
[2020-10-09] MEDS ORDERED: MIDAZOLAM HCL 2 MG/2 ML SINGLE DOSE VIAL ONE (08:06)
[2020-10-09] MEDS ORDERED: PROPOFOL 20 ML ONE (08:06)
[2020-10-09] MEDS ORDERED: LIDOCAINE HCL/PF 2% SDV 5ML VIAL ONE (08:06)
[2020-10-09 08:08] LABS: HEMATOCRIT 29.2 % (32.4-45.2); HEMOGLOBIN 8.8 GM/dL (10.7-15.3); MCHC 30.2 g/dl (32.0-36.0); MEAN CELL VOLUME 64.5 fl (80-96); MEAN PLT VOLUME 7.7 fl (7.5-11.1); PLATELET COUNT 396 K/MM3 (134-434); RBC 4.53 M/mm3 (3.60-5.2); RDW 17.4 % (11.6-15.6)
[2020-10-09] MEDS ORDERED: oxyCODONE HCL 5 MG TABLET PO PRN (08:21)
[2020-10-09] MEDS ORDERED: ONDANSETRON 4 MG/2 ML VIAL IVPUSH PRN (08:21)
[2020-10-09] MEDS ORDERED: IBUPROFEN 400 MG TABLET (FP) PO PRN (08:21)
[2020-10-09] MEDS ORDERED: ACETAMINOPHEN 325 MG TABLET (FP) PO PRN (08:21)
[2020-10-09 08:42] LABS: MCH 19.5 pg (25.7-33.7)
[2020-10-09] MEDS ORDERED: DEXAMETHASONE SOD PHOSPHATE 4 MG/1 ML VIAL ONE (09:53)
[2020-10-09] MEDS ORDERED: LACTATED RINGERS SOLUTION 1,000 ML IV SCH (10:45)
[2020-10-09] MEDS ORDERED: KETOROLAC TROMETHAMINE 30 MG/1 ML VIAL IVPUSH PRN (10:59)
[2020-10-09] MEDS ORDERED: KETOROLAC TROMETHAMINE 30 MG/1 ML VIAL ONE ×2 (10:59→12:25)
[2020-10-09] MEDS ORDERED: ACETAMINOPHEN INJECTION 100 ML IVPB ONE (12:25)
[2020-10-09] MEDS ORDERED: KETOROLAC TROMETHAMINE 30 MG/1 ML VIAL IVPUSH ONE (13:02)
[2020-10-09] MEDS ORDERED: ACETAMINOPHEN 1000 MG/100 ML VIAL (NON FORMULARY) IVPB ONE (13:02)
[2020-10-09] MEDS ORDERED: ONDANSETRON 4 MG/2 ML VIAL ONE (13:22)
[2020-10-09 17:03] VITALS: BP 122/75; PULSE 90; TEMP 98
== END 2020-10-09 16:15 | disposition home or self-care (01) ==
LOC: JASU-SURG 04:23
PROVIDERS: ATTEND Obstetrics & Gynecology
PROC: 0U5B8ZZ Destruction of Endometrium, Via Natural or Artificial Opening Endoscopic (ICD-10-PCS; principal; 2020-10-09 09:30)
PROC: 0UB97ZX Excision of Uterus, Via Natural or Artificial Opening, Diagnostic (ICD-10-PCS; 2020-10-09 09:30)
DX: N92.0 Excessive and frequent menstruation with regular cycle (principal); N84.0 Polyp of corpus uteri
CPT/HCPCS: 36415; 84703; 85027; 86850; 86900; 86901; 86922; 88305-TC; 94760; J0131

== ENCOUNTER 2023-07-28 06:00 | Day surgery (SDC) | payer SELFPAY ==
[2023-07-28 06:49] VITALS: BMI 34.2
[2023-07-28] MEDS ORDERED: BUPIVACAINE HCL/PF 0.25% (2.5MG/ML) 10 ML VIAL ONE (07:22)
[2023-07-28] MEDS ORDERED: BACITRACIN ZINC 15 GM TUBE TOPICAL OINTMENT ONE (07:22)
[2023-07-28] MEDS ORDERED: LIDOCAINE 1%-EPI 1:100,000 30 ML MDV IJ ONE (07:22)
[2023-07-28] MEDS ORDERED: SUCCINYLCHOLINE CHLORIDE 200 MG/10 ML SYRINGE ONE ×2 (07:35→08:36)
[2023-07-28] MEDS ORDERED: SODIUM CHLORIDE 0.9% P/F 10 ML VIAL IJ ONE (07:36)
[2023-07-28] MEDS ORDERED: LIDOCAINE HCL 2% JELLY 11 ML TP ONE (07:36)
[2023-07-28] MEDS ORDERED: DEXAMETHASONE SOD PHOSPHATE 4 MG/1 ML VIAL ONE (07:36)
[2023-07-28] MEDS ORDERED: ONDANSETRON 4 MG/2 ML VIAL ONE ×2 (07:36→09:39)
[2023-07-28] MEDS ORDERED: ceFAZolin SODIUM 1 GM VIAL ONE (07:36)
[2023-07-28] MEDS ORDERED: METOCLOPRAMIDE HCL INJECTION 10 MG/2 ML VIAL ONE (07:36)
[2023-07-28] MEDS ORDERED: PROPOFOL 20 ML ONE (08:35)
[2023-07-28] MEDS ORDERED: MIDAZOLAM HCL 2 MG/2 ML SINGLE DOSE VIAL ONE (08:36)
[2023-07-28] MEDS ORDERED: ONDANSETRON 4 MG/2 ML VIAL IVPUSH PRN (11:06)
[2023-07-28] MEDS ORDERED: oxyCODONE HCL 5 MG TABLET PO PRN ×2 (11:06)
[2023-07-28] MEDS ORDERED: LACTATED RINGERS SOLUTION 1,000 ML IV SCH (11:15)
[2023-07-28] MEDS ORDERED: FENTANYL CITRATE/PF 50 MCG/ML VIAL ONE ×2 (11:23→11:55)
[2023-07-28] MEDS ORDERED: ACETAMINOPHEN 1000 MG/100 ML BAG IVPB ONE (11:28)
[2023-07-28 12:37] VITALS: RESP 18; TEMP 97.2
[2023-07-28 13:43] VITALS: BP 128/80; PULSE 74
== END 2023-07-28 13:06 | disposition home or self-care (01) ==
LOC: FASU 06:00
PROVIDERS: ATTEND Surgery
PROC: 0UBM0ZZ Excision of Vulva, Open Approach (ICD-10-PCS; principal; 2023-07-28 09:33)
DX: N90.69 Other specified hypertrophy of vulva (principal)
CPT/HCPCS: 81025; 94760